=== PATIENT | male | born 1945 | race Caucasian/White ===

== ENCOUNTER 2020-12-24 14:20 | Emergency (ER) | payer OTHER, MEDICARE ==
--- NOTE | 2020-12-24 14:48 | CT ---
[id number] CT/CT Head Stroke Protocol EXAM: NONCONTRAST HEAD CT INDICATION: STROKE. COMPARISON: None. DISCUSSION: There is mild generalized atrophy. The bundy and white matter are normal in attenuation. No mass effect or midline shift. No acute hemorrhage or extra-axial fluid collection. No acute territorial infarct is identified. Mild to moderate scattered paranasal sinus mucosal thickening. Results called at 2:43 PM on 12/24/2020. IMPRESSION: 1. No acute intracranial findings. Doc Echols MD 12/24/20 [id number] Thank you for allowing us to participate in the care of your patient.
--- NOTE | 2020-12-24 14:50 | EDM.PDOC ---
ED HPI GENERAL MEDICAL PROBLEM - General Chief Complaint: Neurological Problem Stated Complaint: STOKE CODE Time Seen by Provider: 12/24/20 14:20 Source of Information: Reports: EMS, EMS Notes Reviewed, Other History Limitations: Reports: Altered Mental Status - History of Present Illness INITIAL COMMENTS - FREE TEXT/NARRATIVE: Patient here for interception with air ambulance from [place] due to positive stroke code. CT scan performed here. Last known well about 1310 with EMS arrival at 1340. Arrived here approximately 1420. CT performed while waiting for air ambulance. Initial EMS reports right sided weakness, unable to respond verbally, facial droop. [place] decision [place], positive stroke symptoms and length of time to transport possibly placing him outside window for alteplase Onset: Today, Sudden Location: Reports: Upper Extremity, Right, Lower Extremity, Right ED ROS GENERAL - Review of Systems Review Of Systems: Unable To Obtain Reason Not Obtained: patient unable, EMS reports reviewed ED EXAM, NEURO - Physical Exam Exam: Not Obtained Exam Limited By: Altered Mental Status Departure - Departure Time of Disposition: 14:45 Disposition: DC/Tfer to Other 70 Condition: Fair Clinical Impression: Stroke - Discharge Information *PRESCRIPTION DRUG MONITORING PROGRAM REVIEWED*: Not Applicable *COPY OF PRESCRIPTION DRUG MONITORING REPORT IN PATIENT KHOI: Not Applicable Referrals: Angus Anton MD [Primary Care Provider] - Forms: Interfacility Transfer EMTALA, ED Department Discharge - Assessment/Plan Assessment:: right sided weakness, secondary to possible CVA etiology Plan: Patient was to be an intercept from the [facility] on the helipad between [facility] ambulance and [facility] from [place]. There was an approximate 10 minutes in lag time with ambulance arriving first. It was decided to bring him into the building for head CT without contrast. Blood pressure prior to arrival was recorded to be 216/177 as well as 194/156. Upon arrival more normal in readings. TNKase not administered as confirmatory CT scan was not available until patient had been taken to air ambulance. Report called to libby, stroke neurologist Dr. Valdez notified. Relayed unable to call earlier due to several factors including this being a planned interception, patient needing direct observation due to unstable and changing vital signs.
== END 2020-12-24 14:45 | disposition other institution (70) ==
LOC: VM.ED 14:20
DX: I63.9 Cerebral infarction, unspecified (principal); R29.810 Facial weakness; G81.91 Hemiplegia, unspecified affecting right dominant side
CPT/HCPCS: 70450; 99284; 99285-25